=== PATIENT | female | born 1995 | race African-American/Black ===

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

== ENCOUNTER 2017-06-14 19:24 | Emergency (ER) | payer MEDICAID, OTHER ==
[~2017-06-14] VITALS: Ht 157.5 cm; Wt 90.7 kg
[2017-06-15 00:08] LABS: Urine RBC None Seen /hpf (0 - 4)
[2017-06-15 00:23] LABS: Urine Bilirubin Negative (Negative); Urine Blood Negative /uL (Negative); Urine Color Yellow (Yellow); Urine Glucose Normal (Normal); Urine Ketone Negative (Negative); Urine Mucus FEW (None Seen); Urine Nitrite Negative (Negative); Urine Squamous Epithelial Cell FEW /hpf (<5); Urine Urobilinogen Normal (Negative)
[2017-06-15 00:30] VITALS: BP 137/95
[2017-06-15] MEDS ORDERED: ALBUTEROL SULF 2.5 MG/0.5ML(0.5%) NEB SOLN NEB ONE (01:45)
[2017-06-15] MEDS ORDERED: IPRATROPIUM BROM 0.5 MG/2.5ML INH SOL NEB ONE (01:45)
== END 2017-06-15 02:15 | disposition home or self-care (01) ==
LOC: ER 19:30
DX: B34.9 Viral infection, unspecified (principal); J45.909 Unspecified asthma, uncomplicated
CPT/HCPCS: 71010; 81001; 94640